=== PATIENT | male | born 1980 | race African-American/Black ===

== ENCOUNTER 2016-07-25 00:14 | Emergency (ER) | payer OTHER ==
[~2016-07-25 00:14] MED LIST: AMOXICILLIN500 M1 PO; AUGMENTIN875 MG PO; BACTRIM DS TABL1 TA2 PO; CIPRO HC OTIC S10 ML OT; DARVOCET-N 1001 TAB PO; IBUPROFEN800 MG PO; KEFLEX500 M1 PO; NAPROXEN PO; NO MEDICATIONS; NORCO1 TAB 10/3 PO; NYQUIL D COLD295 ML; ROBAXIN PO; VOLTAREN75 MG PO
== END 2016-07-25 01:32 | disposition home or self-care (01) ==
LOC: SED 00:14
DX: L03.213 Periorbital cellulitis (principal); F17.200 Nicotine dependence, unspecified, uncomplicated
CPT/HCPCS: 99283